=== PATIENT | female | born 1995 | race Caucasian/White ===

== ENCOUNTER → 2024-09-21 | Outpatient (CLI) | payer BC ==
[2024-09-21 16:54] LABS: Estradiol 31.5 pg/mL; Follicle Stimulating Hormone 7.1 mIU/mL; Prolactin 8.2 ng/mL (2.800-29.200)
[2024-09-21 16:55] LABS: Luteinizing Hormone 4.5 mIU/mL
== END | disposition home or self-care (01) ==
LOC: LABWHC1 08:11
PROVIDERS: ATTEND Obstetrics & Gynecology
DX: N91.5 Oligomenorrhea, unspecified (principal)
CPT/HCPCS: 36415; 82626; 82670; 83001; 83002; 84146